=== PATIENT | male | born 2000 | race African-American/Black ===

== ENCOUNTER 2025-04-14 07:49 | Emergency (ER) | payer SELFPAY ==
[2025-04-14 08:04] VITALS: BP 142/91; PULSE 90; RESP 20; TEMP 36.8; O2SAT 96; BMI 35.9
--- NOTE | 2025-04-14 08:16 | DI.CT.S_ITS ---
PROCEDURE: CT KIDNEY URETER BLADDER (KUB) INDICATIONS: Dysuria TECHNIQUE: Axial sections were acquired from the lung bases to the pubic symphysis. Coronal and sagittal reformats were performed. For radiation dose reduction, the following was used: automated exposure control, adjustment of mA and/or kV according to patient size. COMPARISON: None. FINDINGS: Image quality: Diagnostic. Lower Chest: No significant findings. URINARY: Right Kidney: No stones or hydronephrosis. Right Ureter: No hydroureter. Left Kidney: 6 mm nonobstructing stone is seen in midpole left kidney. No hydronephrosis. Left Ureter: No hydroureter. Bladder: Normal wall thickness. No stones. ABDOMEN: Liver: No contour-deforming solid mass. Gallbladder: No radiopaque gallstones or wall thickening. Biliary ducts: No biliary dilation. Pancreas: No ductal dilation. Spleen: Size is within normal limits. Adrenal Glands: No adrenal nodules. Stomach and Bowel: Normal colonic caliber, without significant wall thickening. Normal appendix. No abscess collection. Peritoneum: No abnormal intraperitoneal fluid. No free air. Ventral Wall: No hernia. Abdominal Nodes: No enlarged retroperitoneal or mesenteric lymph nodes. Vessels: Aorta and inferior vena cava are normal in size. PELVIS: Pelvic Organs: Unremarkable. Pelvic Nodes: Mildly prominent bilateral inguinal lymph nodes are seen measures up to 1.3 cm in short axis diameter . Miscellaneous: No inguinal hernias are seen. Bones: No aggressive appearing bony lesions. IMPRESSION: 1. No obstructing renal stones or hydronephrosis. Nonobstructing stone in left kidney as above. 2. No hydroureter. Normal appearing partially distended urinary bladder. 3. Nonspecific mildly prominent bilateral inguinal lymph nodes which may be reactive in nature. 4. No bowel obstruction or abnormal bowel wall thickening. Normal appendix. No free fluid or free air. Dictated by: Solitario Rodriguez M.D. on 04/14/2025 at 8:52 Approved by: Solitario Rodriguez M.D. on 04/14/2025 at 8:56
--- NOTE | 2025-04-14 08:22 | ED.MALEGU ---
HPI - Male Genitourinary General Chief complaint: Urogenital-Male Stated complaint: Possible Kidney stones x 7 days Time Seen by Provider: 04/14/25 08:05 Source: patient Mode of arrival: Ambulatory History of Present Illness HPI Narrative: Patient here for complaints of urinary discomfort/dysuria for the past 1 week. Has had some debris with voiding as well. Does have history of gonorrhea chlamydia infections in the past. Patient states he is sexually active. Has had multiple partners protected and unprotected sex. Patient recently moved here from [place] a couple of months ago. He has not established primary care yet. Denies any allergies and medications. He states his mother, nurse practitioner, placed him on Augmentin a week ago for sore throat. He states has throat pain off and on. He did have some tender lymph node inguinal creases. Had some hair follicles that he popped already. Has had diarrhea nonbloody for the past 1 or 2 months. He does inquire about possible syphilis testing. He has not had ability to establish primary care yet. Related Data Previous Rx's ?Medication ?Instructions ?Recorded doxycycline monohydrate 100 mg 100 mg PO BID #20 caps 04/14/25 capsule metronidazole 500 mg tablet 500 mg PO BID #14 tabs 04/14/25 Allergies Allergy/AdvReac Type Severity Reaction Status Date / Time No Known Allergies Allergy Verified 04/14/25 08:04 Review of Systems Review of Systems Narrative: GENERAL: Negative chills, fatigue, malaise, fever, sweats. HEENT: Negative sinus pain, ear pain, positive sore throat RESPIRATORY: Negative dyspnea, cough CARDIOVASCULAR: Negative chest pain, palpitations GASTROINTESTINAL: Negative vomiting, nausea, abdominal pain, positive diarrhea : Positive dysuria, and discharge, negative urgency and frequency, hematuria MUSCULOSKELETAL: Negative muscle or bony pain SKIN: Negative rash, skin lesions NEUROLOGIC: Negative weakness, numbness ROS Unobtainable: All systems reviewed & are unremarkable except as noted in HPI and below Patient History Social History Smoking Status: Never smoker Smoking Status: Never smoker Exam Narrative Exam Narrative: GENERAL: in no distress, not toxic not dyspneic HEAD: Normocephalic. EYES: Pupils equal round ENT: Mucous membranes moist. No pharyngeal erythema edema or exudates. No malocclusion or trismus. No tongue elevation. No drooling. NECK: Trachea midline. No palpable tender lymph nodes CARDIOVASCULAR: Regular rate and rhythm RESPIRATORY: Clear to auscultation. Breath sounds equal bilaterally. No wheezes, rales, or rhonchi. GASTROINTESTINAL: Abdomen soft, non-tender Genitourinary exam: Normal external exam. No discharge at the meatus. Slightly erythematous at meatus. Nontender testicles. No lesions vesicles or rash on the penis or scrotum or groin. There is mild tenderness to bilateral lymph nodes at the inguinal creases. No palpable abscesses. No folliculitis. Patient is circumcised. No ulcerations on the penis or scrotal sac. EXTREMITIES: No gross deformities. BACK: No flank tenderness. NEURO: AOx4. Clear speech SKIN: Warm and dry PSYCH: Not anxious, is cooperative Initial Vital Signs Initial Vital Signs: Vital Signs Temperature 98.2 F 04/14/25 08:04 Pulse Rate 90 04/14/25 08:04 Respiratory Rate 20 04/14/25 08:04 Blood Pressure 142/91 H 04/14/25 08:04 Pulse Oximetry 96 04/14/25 08:04 Oxygen Delivery Method Room Air 04/14/25 08:04 Course Orders Ordered: Discontinued Medications Ceftriaxone Sodium (Ceftriaxone 1,000 Mg Vial) 500 mg IM NOW ONE Stop: 04/14/25 08:17 Last Admin: 04/14/25 09:35 Dose: 500 mg Documented By: JUDI Doxycycline Hyclate (Doxycycline Hyclate 100 Mg Tablet) 100 mg PO NOW ONE Stop: 04/14/25 08:17 Last Admin: 04/14/25 09:35 Dose: 100 mg Documented By: JUDI Lidocaine HCl (Lidocaine 1% (Pf) 5 Ml) 2.1 ml INJ NOW ONE Stop: 04/14/25 08:17 Last Admin: 04/14/25 09:36 Dose: Not Given Documented By: JUDI Vital Signs Vital signs: Vital Signs - 8 hr 04/14/25 11:48 Pulse Rate 78 Blood Pressure 132/80 Pulse Oximetry 97 Oxygen Delivery Method Room Air MDM - Male Genitourinary Lab Data 04/14/25 08:50 04/14/25 08:50 Labs: Lab Results 04/14/25 04/14/25 Range/Units 08:50 09:40 WBC 4.7 (4.5-11.0) X10^3/uL RBC 4.50 (4.5-5.9) X10^6/uL Hgb 13.0 L (13.5-17.5) g/dL Hct 37.7 L (41-53) % MCV 83.8 (80-100) fL MCH 28.9 (26-34) PG MCHC 34.5 (30-36) % RDW 15.6 H (11.6-14.8) % Plt Count 214 (150-400) X10^3/uL Neut % (Auto) 42.1 L (50-75) % Lymph % (Auto) 41.3 H (25-40) % [place] % (Auto) 14.6 H (3-14) % Eos % (Auto) 0.8 L (2-4) % Baso % (Auto) 1.2 (0-2) % Neut # (Auto) 2000 (9242-6495) /uL Lymph # (Auto) 1900 (1393-4568) /uL [place] # (Auto) 700 (0-900) /uL Eos # (Auto) 0 (0-450) /uL Baso # (Auto) 100 (0-100) /uL Sodium 142 (137-145) mmol/L Potassium 3.6 (3.4-5.1) mmol/L Chloride 109 H (98-107) mmol/L Carbon Dioxide 22 (22-32) mmol/L BUN 9 (9-20) mg/dL Creatinine 0.92 (0.66-1.25) mg/dL Estimated GFR > 60 (>60) mL/min BUN/Creatinine Ratio 9.8 (6-22) Glucose 106 H (70-99) mg/dL Calcium 9.0 (8.4-10.2) mg/dL Total Bilirubin 0.6 (0.2-1.3) mg/dL AST 30 (17-59) IU/L ALT 45 (<50) IU/L Alkaline Phosphatase 76 (38-126) U/L Total Protein 8.0 (6.3-8.2) g/dL Albumin 4.6 (3.5-5.0) g/dL Globulin 3.4 (1.7-4.1) g/dL Albumin/Globulin Ratio 1.4 (1.0-2.8) Urine Color Yellow Urine Appearance Sl cloudy Urine pH 6.0 (4.5-8.0) Ur Specific [place] >=1.030 H (1.000-1.035) Urine Protein Trace H (Negative) Urine Glucose (UA) Negative (Negative) g/dL Urine Ketones Negative (NEGATIVE) Urine Occult Blood 3+ H (Negative) Urine Nitrate Negative (Negative) Urine Bilirubin Negative (NEGATIVE) Urine Urobilinogen 1.0 (0.2) E.U./dL Ur Leukocyte Esterase Negative (NEGATIVE) Urine RBC 30-100/hpf H (0-5/HPF) Urine WBC 1-5/hpf (0-5/HPF) Ur Squamous Epith Cells 0-1 /hpf (0-5/HPF) Urine Bacteria Occasional (0-1) (None) Ur Culture Indicated? Cult not indicated Vol Urine Centrifuged 10ml (spun) Ur Chlamydia DNA (PCR) Not detected N gonorrhoeae DNA (PCR) Not detected Imaging Data CT scan - abdomen/pelvis: Radiologist's Impression: [address] [address] [address] Scan Report Signed Patient: Chen Lujan JR MR#: [id number] : 2000 Acct:[id number] Age/Sex: 24 / M Date of Service: 04/14/25 Loc: ED Accession Number: [id number] Procedure: CT kidney ureter bladder (KUB) Ordering Provider: Gonzalo Alvarado MD PROCEDURE: CT KIDNEY URETER BLADDER (KUB) INDICATIONS: Dysuria TECHNIQUE: Axial sections were acquired from the lung bases to the pubic symphysis. Coronal and sagittal reformats were performed. For radiation dose reduction, the following was used: automated exposure control, adjustment of mA and/or kV according to patient size. COMPARISON: None. FINDINGS: Image quality: Diagnostic. Lower Chest: No significant findings. URINARY: Right Kidney: No stones or hydronephrosis. Right Ureter: No hydroureter. Left Kidney: 6 mm nonobstructing stone is seen in midpole left kidney. No hydronephrosis. Left Ureter: No hydroureter. Bladder: Normal wall thickness. No stones. ABDOMEN: Liver: No contour-deforming solid mass. Gallbladder: No radiopaque gallstones or wall thickening. Biliary ducts: No biliary dilation. Pancreas: No ductal dilation. Spleen: Size is within normal limits. Adrenal Glands: No adrenal nodules. Stomach and Bowel: Normal colonic caliber, without significant wall thickening. Normal appendix. No abscess collection. Peritoneum: No abnormal intraperitoneal fluid. No free air. Ventral Wall: No hernia. Abdominal Nodes: No enlarged retroperitoneal or mesenteric lymph nodes. Vessels: Aorta and inferior vena cava are normal in size. PELVIS: Pelvic Organs: Unremarkable. Pelvic Nodes: Mildly prominent bilateral inguinal lymph nodes are seen measures up to 1.3 cm in short axis diameter . Miscellaneous: No inguinal hernias are seen. Bones: No aggressive appearing bony lesions. IMPRESSION: 1. No obstructing renal stones or hydronephrosis. Nonobstructing stone in left kidney as above. 2. No hydroureter. Normal appearing partially distended urinary bladder. 3. Nonspecific mildly prominent bilateral inguinal lymph nodes which may be reactive in nature. 4. No bowel obstruction or abnormal bowel wall thickening. Normal appendix. No free fluid or free air. Dictated by: Solitario Rodriguez M.D. on 04/14/2025 at 8:52 Approved by: Solitario Rodriguez M.D. on 04/14/2025 at 8:56 MDM Narrative Medical decision making narrative: Patient here for complaints of urinary discomfort/dysuria for the past 1 week. Has had some debris with voiding as well. Does have history of gonorrhea chlamydia infections in the past. Patient states he is sexually active. Has had multiple partners protected and unprotected sex. Patient recently moved here from [place] a couple of months ago. He has not established primary care yet. Denies any allergies and medications. He states his mother, nurse practitioner, placed him on Augmentin a week ago for sore throat. He states has throat pain off and on. He did have some tender lymph node inguinal creases. Had some hair follicles that he popped already. Has had diarrhea nonbloody for the past 1 or 2 months. He does inquire about possible syphilis testing. He has not had ability to establish primary care yet. After history and exam, CBC CMP urinalysis GC chlamydia strep screen GC chlamydia throat screen CT KUB Rocephin doxycycline MDM Differential considered: Includes but not limited to STI UTI kidney stone Medical records reviewed: No recent visit for this complaint Lab Test results independently reviewed as above. Pertinent findings: WBC 4.7 hemoglobin 13 hematocrit 37.7 sodium 142 potassium 3.6 BUN 9 creatinine 0.92 AST 30 ALT 45, GC chlamydia negative Imaging studies independently reviewed: CT abdomen pelvis no acute finding Consultations: None indicated at this time. Re-evaluations: 11:39 a.m. Updated patient results. Cultures are pending. However we will treat empirically. He agrees with treatment plan. Return precautions reviewed. He desires discharge home. Urology referral provided. Discussion: Appropriate discharge home. Laboratory studies are send outs and patient may come back for results. Return precautions reviewed. Not toxic at discharge. He desires discharge home. Antibiotics have been provided. Trichomonas swab test is a send out. Does not return today. We will treat empirically with Flagyl 500 mg twice a day for 7 days. Diagnosis: Urethritis Discharge Plan Departure Patient Disposition: Home Clinical Impression: Urethritis Instructions: Facts About Sexually Transmitted Infections, DI for Urethritis Activity Restrictions/Additional Instructions: You are being treated for urethritis. Laboratory studies are pending. Cultures are pending. Return if worse if any questions or concerns. Antibiotics have been started. See family doctor in a week for re-evaluation. Please call provided primary care provider phone number to obtain family doctor, . Return if worse if any questions or concerns. Do not consume alcohol with prescribed medications. Call provided urology office for follow up. Call tomorrow. Prescriptions: New doxycycline monohydrate 100 mg capsule 100 mg PO BID Qty: 20 0RF metronidazole 500 mg tablet 500 mg PO BID Qty: 14 0RF Referrals: Reagan Banks DO [Physician, Urology] Stand Alone Forms: Patient Portal/API, Work Release Note
[2025-04-14 09:07] LABS: Add Manual Diff / Slide Review NO; Hematocrit 37.7 % (41-53); Hemoglobin 13.0 g/dL (13.5-17.5); Lymphocytes Absolute Auto 1900 /uL (1100-4500); Mean Corpuscular HGB Conc 34.5 % (30-36); Mean Corpuscular Hemoglobin 28.9 PG (26-34); Mean Corpuscular Volume 83.8 fL (80-100); Platelet Count 214 X10^3/uL (150-400)
[2025-04-14 09:19] LABS: Albumin 4.6 g/dL (3.5-5.0); Albumin Globulin Ratio 1.4 (1.0-2.8); Alkaline Phosphatase 76 U/L (38-126); Blood Urea Nitrogen 9 mg/dL (9-20); Carbon Dioxide 22 mmol/L (22-32); Chloride 109 mmol/L (98-107); Estimated Glomerular Filt Rate > 60 mL/min (>60); Globulin 3.4 g/dL (1.7-4.1); HEMOLYSIS < 15 (0-50); Potassium 3.6 mmol/L (3.4-5.1); Sodium 142 mmol/L (137-145); Total Protein 8.0 g/dL (6.3-8.2)
[2025-04-14 09:20] LABS: Alanine Aminotransferase 45 IU/L (<50); Calcium 9.0 mg/dL (8.4-10.2); Glucose 106 mg/dL (70-99)
[2025-04-14] MEDS: DOXYCYCLINE HYCLATE 100 MG TABLET PO (09:35)
[2025-04-14 10:02] LABS: Appearance Urine UA SL CLOUDY; Bilirubin Urine UA NEGATIVE (NEGATIVE); Color Urine UA YELLOW; Glucose Urine UA NEGATIVE (Negative); Ketones Urine UA NEGATIVE (NEGATIVE); Leukocyte Esterase Urine UA NEGATIVE (NEGATIVE); Nitrite Urine UA NEGATIVE (Negative); Occult Blood Urine UA 3+ (Negative); Protein Urine UA TRACE (Negative); Specific Gravity Urine UA >=1.030 (1.000-1.035); Urobilinogen Urine UA 1.0 E.U./dL (0.2); pH Urine UA 6.0 (4.5-8.0)
[2025-04-14 10:13] LABS: Culture Indicated Urine Cult Not Indicated
[2025-04-14 11:19] LABS: Urine Chlamydia NOT DETECTED; Urine N gonorrhoeae NOT DETECTED
[2025-04-14 11:48] VITALS: BP 132/80; PULSE 78; O2SAT 97
== END 2025-04-14 11:48 | disposition home or self-care (01) ==
PROVIDERS: Emergency Provider Emergency Medicine
DX: N34.2 Other urethritis (principal)
CPT/HCPCS: 36415; 74176; 80053; 81001; 85025; 86592; 87081; 87491; 87591; 87661; 96372; 99283; 99284; J0696